=== PATIENT | female | born 1990 | race African-American/Black ===

== ENCOUNTER 2017-12-25 21:17 | Emergency (ER) | payer OTHER ==
--- NOTE | 2017-12-25 23:41 | EDPHYS ---
Physician Documentation [facility] Name: Stephenie Miller Age: 27 yrs Sex: Female : 1990 Arrival Date: 12/25/2017 Time: 21:18 Bed 30 Private MD: ED Physician Josh Carolina HPI: 12/26 01:05 This 27 yrs old Black Female presents to ER via Ambulatory with complaints of Fall snw Injury. 01:05 Details of fall: The patient fell from an upright position, while standing. Onset: The snw symptoms/episode began/occurred suddenly, today. Associated injuries: The patient sustained left leg and palmar aspect of left forearm, abrasion, contusion, hematoma. Severity of symptoms: At their worst the symptoms were moderate, in the emergency department the symptoms are unchanged. It is unknown whether or not the patient has had similar symptoms in the past. The patient has not recently seen a physician. 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 - Social history:: Smoking status: Patient/guardian denies using tobacco. ROS: 12/26 01:05 Constitutional: Negative for fever, chills, and weight loss, Eyes: Negative for injury, snw pain, redness, and discharge, ENT: Negative for injury, pain, and discharge, Neck: Negative for injury, pain, and swelling, Cardiovascular: Negative for chest pain, palpitations, and edema, Respiratory: Negative for shortness of breath, cough, wheezing, and pleuritic chest pain, Abdomen/GI: Negative for abdominal pain, nausea, vomiting, diarrhea, and constipation, Back: Negative for injury and pain, : Negative for injury, bleeding, discharge, and swelling, Skin: Negative for injury, rash, and discoloration, Neuro: Negative for headache, weakness, numbness, tingling, and seizure. MS/extremity: Positive for injury or acute deformity, erythema, swelling, of the left arm and palmar aspect of left forearm and left leg. Exam: 01:07 Constitutional: This is a well developed, well nourished patient who is awake, alert, snw and in no acute distress. Head/Face: Normocephalic, atraumatic. Eyes: Pupils equal round and reactive to light, extra-ocular motions intact. Lids and lashes normal. Conjunctiva and sclera are non-icteric and not injected. Cornea within normal limits. Periorbital areas with no swelling, redness, or edema. ENT: Nares patent. No nasal discharge, no septal abnormalities noted. Tympanic membranes are normal and external auditory canals are clear. Oropharynx with no redness, swelling, or masses, exudates, or evidence of obstruction, uvula midline. Mucous membranes moist. Neck: Trachea midline, no thyromegaly or masses palpated, and no cervical lymphadenopathy. Supple, full range of motion without nuchal rigidity, or vertebral point tenderness. No Meningismus. Chest/axilla: Normal chest wall appearance and motion. Nontender with no deformity. No lesions are appreciated. Cardiovascular: Regular rate and rhythm with a normal S1 and S2. No gallops, murmurs, or rubs. Normal PMI, no JVD. No pulse deficits. Respiratory: Lungs have equal breath sounds bilaterally, clear to auscultation and percussion. No rales, rhonchi or wheezes noted. No increased work of breathing, no retractions or nasal flaring. Abdomen/GI: Soft, non-tender, with normal bowel sounds. No distension or tympany. No guarding or rebound. No evidence of tenderness throughout. Back: No spinal tenderness. No costovertebral tenderness. Full range of motion. Neuro: Awake and alert, GCS 15, oriented to person, place, time, and situation. Cranial nerves II-XII grossly intact. Motor strength 5/5 in all extremities. Sensory grossly intact. Cerebellar exam normal. Normal gait. Psych: Awake, alert, with orientation to person, place and time. Behavior, mood, and affect are within normal limits. 01:07 Skin: Appearance: normal except for affected area, injury, abrasion(s), very small abrasion noted, of the lateral aspect of left knee, contusion(s), that are deep, of the lateral aspect of left thigh. Vital Signs: 12/25 22:00 BP 127 / 81; Pulse 60; Resp 18 S; Temp 98.0(O); Pulse Ox 98% on R/A; Weight 98.88 kg; ea Height 5 ft. 5 in. (165.10 cm); Pain 5/10; 22:00 Body Mass Index 36.28 (98.88 kg, 165.10 cm) ea MDM: 23:24 Patient medically screened. snw 12/26 01:06 Data reviewed: vital signs, nurses notes. Data interpreted: Pulse oximetry: on room air snw is 98 %. Interpretation: normal. Counseling: I had a detailed discussion with the patient and/or guardian regarding: the historical points, exam findings, and any diagnostic results supporting the discharge/admit diagnosis, the presence of at least one elevated blood pressure reading (>120/80) during this emergency department visit, the need for outpatient follow up, to return to the emergency department if symptoms worsen or persist or if there are any questions or concerns that arise at home. Special discussion: I have referred the patient to see his PCP for further evaluation of high blood pressure. Based on the history and exam findings, there is no indication for further emergent testing or inpatient evaluation. I discussed with the patient/guardian the need to see the primary care provider for further evaluation of the symptoms. Administered Medications: 12/25 23:48 Not Given (other intervention used): Tylenol #3 (300 mg-30 mg) 1 tablet PO once snw 23:49 Not Given (pt remembered the last was in 2012): Tetanus-Diphtheria Toxoid Adult 0.5 ml snw IM once 23:54 Drug: KeFLEX 500 mg Route: PO; [facility] 23:55 Follow up: Response: Medication administered at discharge. [facility] 23:54 Drug: Motrin 600 mg Route: PO; kb1 23:54 Follow up: Response: Medication administered at discharge. kb1 Disposition: 12/26 06:19 Co-signature as Attending Physician, Josh Carolina MD. Disposition: 12/25/17 23:40 Discharged to Home. Impression: Fall (on) (from) unspecified stairs and steps, Contusion of unspecified lower leg, Abrasion of knee, Hematoma to lateral thigh. - Condition is Stable. - Discharge Instructions: Abrasion, Hematoma, Fall Prevention and Home Safety, VIS, Tetanus, Diphtheria (Td) - CDC. - Prescriptions for Keflex 500 mg Oral Capsule - take 1 capsule by ORAL route every 8 hours for 10 days; 30 capsule. Diclofenac Sodium 75 mg Oral Tablet Sustained Release - take 1 tablet by ORAL route 2 times per day; 30 tablet. - Medication Reconciliation Form, Thank You Letter, Antibiotic Education, Prescription Opioid Use form. - Follow up: Private Physician; When: 2 - 3 days; Reason: Recheck today's complaints, Continuance of care, Re-evaluation by your physician. Follow up: Emergency Department; When: As needed; Reason: Worsening of condition. Signatures: Archana Hilario, BELLY ROLLER-C BELLY ROLLER-Csnw Guillermina Gibson, RN RN ea Josh Carolina MD MD gs Karina Bateman RN RN kb1
--- NOTE | 2017-12-25 23:41 | ER ---
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 States "my left calf hurts really bad and I scrapped my leg and arms up" Pt denies hitting head, denies LOC. Transition of care: patient was not received from another setting of care. Onset of symptoms was December 25, 2017. Care prior to arrival: None. 21:49 Method Of Arrival: Ambulatory ea 21:49 Acuity: RADHA 3 ea Triage Assessment: 21:56 General: Appears in no apparent distress. Behavior is calm, cooperative, appropriate ea for age. Pain: Complains of pain in left arm and left leg Pain does not radiate. Pain currently is 5 out of 10 on a pain scale. Quality of pain is described as aching. Derm: abrasions to left forearm and posterior left upper thigh. 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 - Social history:: Smoking status: Patient/guardian denies using tobacco. Screenin:02 Abuse screen: Denies threats or abuse. Nutritional screening: No deficits noted. ea Tuberculosis screening: No symptoms or risk factors identified. Fall Risk None identified. Assessment: 22:55 General: Appears in no apparent distress. Behavior is calm, cooperative. Neuro: Level kb1 of Consciousness is awake, alert, obeys commands, Oriented to person, place, time, situation. Cardiovascular: Patient's skin is warm and dry. Respiratory: Respiratory effort is even, unlabored, Respiratory pattern is regular, symmetrical. GI: No signs and/or symptoms were reported involving the gastrointestinal system. : No signs and/or symptoms were reported regarding the genitourinary system. Derm: superficial laceration to right side of left leg below knee. Bleeding controlled. Musculoskeletal: Reports "tightness" in left calf, pain in left wrist "I had surgery here and it is kind of hurting." surgery was in 2011. Injury Description: Abrasion. Vital Signs: 22:00 BP 127 / 81; Pulse 60; Resp 18 S; Temp 98.0(O); Pulse Ox 98% on R/A; Weight 98.88 kg; ea Height 5 ft. 5 in. (165.10 cm); Pain 5/10; 22:00 Body Mass Index 36.28 (98.88 kg, 165.10 cm) ea ED Course: 21:18 Patient arrived in ED. ds1 21:55 Triage completed. ea 22:54 Karina Bateman, RN is Primary Nurse. kb1 23:02 Patient has correct armband on for positive identification. Bed in low position. Call kb1 light in reach. 23:02 No provider procedures requiring assistance completed. Patient did not have IV access kb1 during this emergency room visit. 23:06 Archana Hilario F[facility]-C [facility]. snw 23:06 Josh Carolina MD is Attending Physician. snw Administered Medications: 23:48 Not Given (other intervention used): Tylenol #3 (300 mg-30 mg) 1 tablet PO once snw 23:49 Not Given (pt remembered the last was in 2012): Tetanus-Diphtheria Toxoid Adult 0.5 ml snw IM once 23:54 Drug: KeFLEX 500 mg Route: PO; kb1 23:55 Follow up: Response: Medication administered at discharge. kb1 23:54 Drug: Motrin 600 mg Route: PO; kb1 23:54 Follow up: Response: Medication administered at discharge. kb1 Outcome: 23:40 Discharge ordered by . snw 23:57 Discharged to home ambulatory. kb1 23:57 Condition: stable 23:57 Discharge instructions given to patient, Instructed on discharge instructions, follow up and referral plans. medication usage, Demonstrated understanding of instructions, follow-up care, medications, Prescriptions given X 2. 23:58 Patient left the ED. kb1 Signatures: Archana Hilario, PETROPHYSICIST-C PETROPHYSICIST-Csnw Ashley Bowman ds1 Guillermina Gibson RN Karina Zapata ea, RN RN kb1 Corrections: (The following items were deleted from the chart) 22:02 21:56 General: Appears in no apparent distress. 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 States "my left calf hurts really bad and I scrapped my leg and arms up" ea 23:05 22:55 Musculoskeletal: Reports "tightness" in left calf kb1 kb1
[2017-12-26] MEDS ORDERED: CODEINE 30MG/APAP 300MG TAB ONE (00:03)
[2017-12-26] MEDS ORDERED: CEPHALEXIN 250 MG CAP ONE (00:03)
[2017-12-26] MEDS ORDERED: TETANUS & DIPHTHERIA TOX,ADULT 0.5 ML VIAL ONE (00:04)
[2017-12-26] MEDS ORDERED: IBUPROFEN 200 MG TAB PO ONE (00:10)
[2017-12-26 00:17] VITALS: BP 127/81; TEMP 98; O2SAT 98
== END 2017-12-25 23:58 | disposition home or self-care (01) ==
LOC: ER 21:17
DX: Y92.69 Other specified industrial and construction area as the place of occurrence of the external cause; S80.12XA Contusion of left lower leg, initial encounter; Y99.0 Civilian activity done for income or pay; W17.89XA Other fall from one level to another, initial encounter; S80.212A Abrasion, left knee, initial encounter; S70.12XA Contusion of left thigh, initial encounter; Y93.89 Activity, other specified
CPT/HCPCS: 90714; 99283

== ENCOUNTER 2018-09-14 19:32 | Emergency (ER) | payer OTHER, SELFPAY ==
[2018-09-14 20:37] LABS: Absolute Lymphocytes (CBC) 2.4 K/uL (0.7-4.9); Absolute Monocytes 0.5 K/uL (0.1-1.3); Absolute Neutrophil 4.7 K/uL (1.8-8.0); Basophils % 0.7 % (0-1.3); Hematocrit 37.5 % (36.0-45.0); Lymphocytes % 30.6 % (15.3-44.8); MCH 29.7 pg (27.0-35.0); MCV 88.4 fL (80-100); MPV 8.1 fL (7.6-11.3); Monocytes % 6.4 % (3.3-12.3); RBC Red Blood Cell Count 4.24 M/uL (3.86-4.86)
[2018-09-14 20:49] LABS: Protime INR 1.04
[2018-09-14 21:19] LABS: ALT/SGPT 21 U/L (12-78); AST/SGOT 13 U/L (15-37); Albumin 3.4 g/dL (3.4-5.0); Alkaline Phosphatase 80 U/L (45-117); BUN Blood Urea Nitrogen 16 mg/dL (7-18); Bicarbonate 24 mmol/L (21-32); Bilirubin Direct < 0.1 mg/dL (0-0.2); Bilirubin Total 0.1 mg/dL (0.2-1.0); Glucose Level 94 mg/dL (74-106); Magnesium 2.3 mg/dL (1.8-2.4); NT PRO-BNP 8 pg/mL (<125); Potassium 3.5 mmol/L (3.5-5.1); Protein, Total 7.5 g/dL (6.4-8.2); Sodium Level 139 mmol/L (136-145); Troponin (Emerg Dept Use Only) < 0.02 ng/mL (0.0-0.045)
--- NOTE | 2018-09-14 21:34 | EDPHYS ---
Physician Documentation [facility] Name: Stephenie Miller Age: 27 yrs Sex: Female : 1990 Arrival Date: 09/14/2018 Time: 19:34 Bed 23 Private MD: ED Physician Josh Carolina HPI: 09/14 21:09 This 27 yrs old Black Female presents to ER via Ambulatory with complaints of Chest gs Pressure. 21:09 The patient or guardian reports chest pain that is located primarily in the anterior gs chest wall. The pain does not radiate. Associated signs and symptoms: Pertinent negatives: diaphoresis, shortness of breath. The chest pain is described as dull. Duration: The patient or guardian reports multiple episodes, that are intermittent, that wax and wane, with no pattern. Modifying factors: The symptoms are alleviated by nothing. the symptoms are aggravated by nothing. Severity of pain: At its worst the pain was moderate in the emergency department the pain has improved markedly. The patient has experienced similar episodes in the past, a few times. 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 - Social history:: Smoking status: Patient/guardian denies using tobacco. - Ebola Screening: : Patient denies travel to an Ebola-affected area in the 21 days before illness onset. ROS: 21:09 All other systems are negative. gs Exam: 21:09 Head/Face: Normocephalic, atraumatic. Eyes: Pupils equal round and reactive to light, gs extra-ocular motions intact. Lids and lashes normal. Conjunctiva and sclera are non-icteric and not injected. Cornea within normal limits. Periorbital areas with no swelling, redness, or edema. ENT: Nares patent. No nasal discharge, no septal abnormalities noted. Tympanic membranes are normal and external auditory canals are clear. Oropharynx with no redness, swelling, or masses, exudates, or evidence of obstruction, uvula midline. Mucous membranes moist. Neck: Trachea midline, no thyromegaly or masses palpated, and no cervical lymphadenopathy. Supple, full range of motion without nuchal rigidity, or vertebral point tenderness. No Meningismus. Chest/axilla: Normal chest wall appearance and motion. Nontender with no deformity. No lesions are appreciated. Cardiovascular: Regular rate and rhythm with a normal S1 and S2. No gallops, murmurs, or rubs. Normal PMI, no JVD. No pulse deficits. Respiratory: Lungs have equal breath sounds bilaterally, clear to auscultation and percussion. No rales, rhonchi or wheezes noted. No increased work of breathing, no retractions or nasal flaring. Abdomen/GI: Soft, non-tender, with normal bowel sounds. No distension or tympany. No guarding or rebound. No evidence of tenderness throughout. Back: No spinal tenderness. No costovertebral tenderness. Full range of motion. Skin: Warm, dry with normal turgor. Normal color with no rashes, no lesions, and no evidence of cellulitis. MS/ Extremity: Pulses equal, no cyanosis. Neurovascular intact. Full, normal range of motion. Neuro: Awake and alert, GCS 15, oriented to person, place, time, and situation. Cranial nerves II-XII grossly intact. Motor strength 5/5 in all extremities. Sensory grossly intact. Cerebellar exam normal. Normal gait. 21:09 Constitutional: The patient appears alert, awake. 21:09 ECG was reviewed by the Attending Physician. Vital Signs: 19:51 Pulse 88; Resp 18; Temp 98.2; Pulse Ox 100% on R/A; Weight 90.72 kg; Height 5 ft. 5 in. aj1 (165.10 cm) (R); 20:00 BP 142 / 97; rv 20:30 BP 124 / 82; Pulse 82; Resp 16 S; Pulse Ox 100% on R/A; rv 21:44 BP 143 / 77; Pulse 90 LA; Resp 16 S; Pulse Ox 100% on R/A; rv 19:51 Body Mass Index 33.28 (90.72 kg, 165.10 cm) aj1 MDM: 19:52 Patient medically screened. 21:09 Differential diagnosis: abnormal EKG, acute myocardial infarction, chest wall pain, gs pneumonia, pneumothorax. HEART Score: History: Slightly Suspicious (0), ECG: Normal (0), Age: < or = 45 years (0), Risk Factors: 1 or 2 risk factors (1), Troponin: < or = 1 x Normal Limit (0). Data reviewed: vital signs, nurses notes. Counseling: I had a detailed discussion with the patient and/or guardian regarding: the historical points, exam findings, and any diagnostic results supporting the discharge/admit diagnosis, lab results, radiology results, the need for outpatient follow up. 09/14 19:52 Order name: Basic Metabolic Panel; Complete Time: 21:21 gs 09/14 19:52 Order name: CBC with Diff; Complete Time: 20:56 gs 09/14 19:53 Order name: LFT's; Complete Time: 21:21 gs 09/14 19:53 Order name: Magnesium; Complete Time: 21:22 09/14 19:53 Order name: NT PRO-BNP; Complete Time: 21:22 gs 09/14 19:53 Order name: PT-INR; Complete Time: 20:56 09/14 19:53 Order name: Troponin (emerg Dept Use Only); Complete Time: 21:22 09/14 19:53 Order name: XRAY Chest (1 view) 09/14 19:53 Order name: EKG; Complete Time: 19:54 gs 09/14 19:53 Order name: Cardiac monitoring; Complete Time: 20:49 09/14 19:53 Order name: EKG - Nurse/Tech; Complete Time: 20:49 09/14 19:53 Order name: IV Saline Lock; Complete Time: 20:49 09/14 21:32 Order name: Urine Dipstick--Ancillary (enter results) oh 09/14 21:32 Order name: Urine --Ancillary (enter results) oh 09/14 19:53 Order name: Labs collected and sent; Complete Time: 20:49 gs 09/14 19:53 Order name: O2 Per Protocol; Complete Time: 20:49 09/14 19:53 Order name: O2 Sat Monitoring; Complete Time: 20:49 gs EC:09 Rate is 87 beats/min. Rhythm is regular. SD interval is normal. QRS interval is normal. gs No Q waves. T waves are Normal. No ST changes noted. Clinical impression: Normal ECG. Interpreted by me. Administered Medications: No medications were administered Disposition: 09/14/18 21:33 Discharged to Home. Impression: Chest pain, unspecified, Essential (primary) hypertension. - Condition is Stable. - Discharge Instructions: Nonspecific Chest Pain, Managing Your Hypertension. - Prescriptions for Norvasc 5 mg Oral Tablet - take 1 tablet by ORAL route once daily; 20 tablet. - Medication Reconciliation Form, Thank You Letter, Antibiotic Education, Prescription Opioid Use form. - Follow up: Private Physician; When: 2 - 3 days; Reason: Re-evaluation by your physician. Signatures: Dispatcher [employer] EDDarling Taylor RN RN aj1 Josh Carolina MD MD gs Bunny Medina RN RN rv Corrections: (The following items were deleted from the chart) 21:46 21:33 09/14/2018 21:33 Discharged to Home. Impression: Chest pain, unspecified; rv Essential (primary) hypertension. Condition is Stable. Discharge Instructions: Nonspecific Chest Pain, Managing Your Hypertension. Prescriptions for Norvasc 5 mg Oral Tablet - take 1 tablet by ORAL route once daily; 20 tablet. and Forms are Medication Reconciliation Form, Thank You Letter, Antibiotic Education, Prescription Opioid Use. Follow up: Private Physician; When: 2 - 3 days; Reason: Re-evaluation by your physician.
--- NOTE | 2018-09-14 21:34 | ER ---
Nurse's Notes [facility] Name: Stephenie Miller Age: 27 yrs Sex: Female : 1990 Arrival Date: 09/14/2018 Time: 19:34 Bed 23 Private MD: Diagnosis: Chest pain, unspecified;Essential (primary) hypertension Presentation: 09/14 19:49 Presenting complaint: Patient states: Left sided chest pressure and tightness that aj1 radiates to the neck since 1700 today. Patient denies nausea, SOB, palpitations, or dizziness. States that she used to take amlodipine for blood pressure but she has not had any for the past month. Transition of care: patient was not received from another setting of care. Onset of symptoms was September 14, 2018 at 17:00. Risk Assessment: Do you want to hurt yourself or someone else? Patient reports no desire to harm self or others. Initial Sepsis Screen: Does the patient meet any 2 criteria? No. Patient's initial sepsis screen is negative. Does the patient have a suspected source of infection? No. Patient's initial sepsis screen is negative. Care prior to arrival: None. 19:49 Method Of Arrival: Ambulatory aj1 19:49 Acuity: RADHA 3 aj1 Triage Assessment: 19:51 General: Appears in no apparent distress. uncomfortable, Behavior is calm, cooperative, aj1 appropriate for age. Pain: Complains of pain in anterior aspect of left upper chest Pain radiates to neck Pain currently is 2 out of 10 on a pain scale. Quality of pain is described as pressure, Pain began 3 hours ago. Neuro: Level of Consciousness is awake, alert, obeys commands. Cardiovascular: Reports chest pain, Patient's skin is warm and dry. Respiratory: Airway is patent Respiratory effort is even, unlabored, Respiratory pattern is regular, symmetrical. 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 - Social history:: Smoking status: Patient/guardian denies using tobacco. - Ebola Screening: : Patient denies travel to an Ebola-affected area in the 21 days before illness onset. Screenin:00 Abuse screen: Denies threats or abuse. Denies injuries from another. Nutritional rv screening: No deficits noted. Tuberculosis screening: No symptoms or risk factors identified. Fall Risk None identified. Assessment: 19:59 General: Appears in no apparent distress. comfortable, Behavior is calm, cooperative. rv Pain: Complains of pain in chest Pain radiates to neck. Pain: Pain began 2-3 days ago. Neuro: Level of Consciousness is awake, alert, obeys commands, Oriented to person, place, time, situation. Cardiovascular: Capillary refill < 3 seconds Rhythm is regular. Respiratory: Airway is patent. GI: No signs and/or symptoms were reported involving the gastrointestinal system. : No signs and/or symptoms were reported regarding the genitourinary system. EENT: No signs and/or symptoms were reported regarding the EENT system. Derm: Skin is intact. Musculoskeletal: No signs and/or symptoms reported regarding the musculoskeletal system. 20:53 Reassessment: Patient appears in no apparent distress at this time. rv Vital Signs: 19:51 Pulse 88; Resp 18; Temp 98.2; Pulse Ox 100% on R/A; Weight 90.72 kg; Height 5 ft. 5 in. aj1 (165.10 cm) (R); 20:00 BP 142 / 97; rv 20:30 BP 124 / 82; Pulse 82; Resp 16 S; Pulse Ox 100% on R/A; rv 21:44 BP 143 / 77; Pulse 90 LA; Resp 16 S; Pulse Ox 100% on R/A; rv 19:51 Body Mass Index 33.28 (90.72 kg, 165.10 cm) aj1 ED Course: 19:34 Patient arrived in ED. ag3 19:38 Josh Carolina MD is Attending Physician. gs 19:50 Triage completed. aj1 19:51 Arm band placed on Patient placed in an exam room. aj1 20:00 Patient has correct armband on for positive identification. Placed in gown. Bed in low rv position. Call light in reach. Side rails up X 1. Adult w/ patient. athletic monitor on. Pulse ox on. NIBP on. 20:01 Patient maintains SpO2 saturation greater than 95% on room air. rv 20:30 Inserted saline lock: 20 gauge in right forearm, using aseptic technique. Blood rv collected. 20:30 Initial lab(s) drawn, by ED staff, sent to lab. rv 20:49 Troponin (emerg Dept Use Only) Sent. rv 20:50 PT-INR Sent. rv 20:50 NT PRO-BNP Sent. rv 20:50 Magnesium Sent. rv 20:50 LFT's Sent. rv 20:50 Basic Metabolic Panel Sent. rv 21:45 No provider procedures requiring assistance completed. IV discontinued, bleeding rv controlled, No redness/swelling at site. Pressure dressing applied. 21:46 XRAY Chest (1 view) In Process Unspecified. EDMS Administered Medications: No medications were administered Outcome: 21:33 Discharge ordered by MD. 21:45 Discharged to home ambulatory. rv 21:45 Condition: good 21:45 Discharge instructions given to patient, Instructed on discharge instructions, follow up and referral plans. medication usage, Demonstrated understanding of instructions, follow-up care, medications, Prescriptions given X 1. 21:46 Patient left the ED. rv Signatures: Dispatcher [employer] EDMS Darling Anderson RN RN aj1 Josh Carolina MD MD Bunny Medina RN RN Angeli Parker ag3
[2018-09-14 21:55] VITALS: TEMP 98.2; O2SAT 100
[2018-09-14 21:59] VITALS: BP 143/77
[2018-09-14 22:10] LABS: Urine Blood NEGATIVE (NEG); Urine Glucose NEGATIVE (NEG); Urine Protein NEGATIVE (NEG); Urine Specific Gravity 1.015 (1.005-1.030)
--- NOTE | 2018-09-15 05:46 | EKG ---
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
--- NOTE | 2018-09-15 07:16 | RAD REPORT ---
EXAM DESCRIPTION: RAD - Chest Single View - 09/14/2018 9:45 pm CLINICAL HISTORY: Left-sided chest pain COMPARISON: None. TECHNIQUE: AP portable chest image was obtained 2127 hours . FINDINGS: Lung volumes are very low accentuating heart, vasculature and lung markings. No focal infi ltrate, mass or failure finding suspected. Heart and vasculature are normal. No measurable pleural ef fusion and no pneumothorax. No acute bony abnormality seen. No acute aortic findings suspected. IMPRESSION: Limited shallow inspiration film with no acute cardiopulmonary finding.
== END 2018-09-14 21:46 | disposition home or self-care (01) ==
LOC: ER 19:32
DX: I10 Essential (primary) hypertension (principal)
CPT/HCPCS: 36415; 71045; 80048; 80076; 81003; 81025; 83735; 83880; 84484; 85025; 85610; 93005; 99285

== ENCOUNTER 2019-02-03 17:38 | Emergency (ER) | payer SELFPAY ==
--- NOTE | 2019-02-03 19:06 | ER ---
Nurse's Notes [facility] Name: Stephenie Bal Age: 28 yrs Sex: Female : 1990 Arrival Date: 02/03/2019 Time: 17:41 Bed 19 Private MD: Alberta Goodwin K Diagnosis: Cellulitis of right axilla-right arm Presentation: 02/03 17:51 Presenting complaint: Patient states: i have had an abscess for about a year ago that i tw2 had worked on and i feel like it hasnt healed right or like the string is still in there, RIGHT axilla. Transition of care: patient was not received from another setting of care. Onset of symptoms was February 03, 2019. Risk Assessment: Do you want to hurt yourself or someone else? Patient reports no desire to harm self or others. Initial Sepsis Screen: Does the patient meet any 2 criteria? No. Patient's initial sepsis screen is negative. Does the patient have a suspected source of infection? No. Patient's initial sepsis screen is negative. Care prior to arrival: None. 17:51 Method Of Arrival: Ambulatory tw2 17:51 Acuity: RADHA 3 tw2 Triage Assessment: 17:53 General: Appears in no apparent distress. Behavior is calm, cooperative, appropriate tw2 for age. Pain: Complains of pain in right axilla. EENT: No signs and/or symptoms were reported regarding the EENT system. Neuro: Level of Consciousness is awake, alert, obeys commands, Oriented to person, place, time, situation. Cardiovascular: Heart tones S1 S2 Patient's skin is warm and dry. Respiratory: Airway is patent Respiratory effort is even, unlabored, Respiratory pattern is regular, symmetrical, Breath sounds are clear bilaterally. GI: No signs and/or symptoms were reported involving the gastrointestinal system. : No signs and/or symptoms were reported regarding the genitourinary system. Derm: Abscess located on right axilla. 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 - Social history:: Smoking status: . - Ebola Screening: : Patient negative for fever greater than or equal to 101.5 degrees Fahrenheit, and additional compatible Ebola Virus Disease symptoms. Screenin:55 Abuse screen: Denies threats or abuse. Nutritional screening: No deficits noted. tw2 Tuberculosis screening: No symptoms or risk factors identified. Fall Risk None identified. Assessment: 17:54 Reassessment: see triage assessment. tw2 18:07 Derm: Abscess located on right axilla is dime sized, has clear drainage, is red, is tw2 raised. 19:09 Reassessment: Patient appears in no apparent distress at this time. Patient is alert, tw2 oriented x 3, equal unlabored respirations, skin warm/dry/pink. Vital Signs: 17:52 BP 132 / 86; Pulse 60; Resp 17; Temp 98.6(O); Pulse Ox 100% on R/A; Weight 99.79 kg tw2 (R); Height 5 ft. 5 in. (165.10 cm) (R); Pain 4/10; 17:52 Body Mass Index 36.61 (99.79 kg, 165.10 cm) tw2 ED Course: 17:41 Patient arrived in ED. mr 17:41 Alberta Goodwin MD is Private Physician. mr 17:51 Arlette Evans, THAD is Primary Nurse. tw2 17:52 Triage completed. tw2 17:54 Arm band placed on. tw2 17:55 Placed in gown. Bed in low position. Call light in reach. tw2 18:26 Fahad Morel PA is PHCP. cp 18:26 Marcie Perla MD is Attending Physician. cp 19:04 Momo Sawyer MD is Referral Physician. cp 19:10 No provider procedures requiring assistance completed. Patient did not have IV access tw2 during this emergency room visit. Administered Medications: No medications were administered Outcome: 19:04 Discharge ordered by . cp 19:10 Discharged to home ambulatory. tw2 19:10 Condition: stable 19:10 Discharge instructions given to patient, Instructed on discharge instructions, follow up and referral plans. medication usage, wound care, Demonstrated understanding of instructions, follow-up care, medications, wound care. 19:11 Patient left the ED. tw2 Signatures: Ana Montana mr Fahad Morel PA PA cp Wise, Tara, RN RN tw2
--- NOTE | 2019-02-03 19:06 | EDPHYS ---
Physician Documentation [facility] Name: Stephenie Bal Age: 28 yrs Sex: Female : 1990 Arrival Date: 02/03/2019 Time: 17:41 Bed 19 Private MD: Alberta Goodwin K ED Physician Marcie Perla HPI: 02/03 18:59 This 28 yrs old Black Female presents to ER via Ambulatory with complaints of Abscess. cp 18:59 drainage from right arm axilla. Onset: The symptoms/episode began/occurred several days cp ago. Possible cause(s): unknown. Associated signs and symptoms: Pertinent positives: drainage, Pertinent negatives: fever. Severity of symptoms: in the emergency department the symptoms are unchanged. Patient reports having area incised and drained about a year ago and is concerned about possible retained "gauze". 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 - Social history:: Smoking status: . - Ebola Screening: : Patient negative for fever greater than or equal to 101.5 degrees Fahrenheit, and additional compatible Ebola Virus Disease symptoms. ROS: 19:01 Constitutional: Negative for body aches, chills, fever, poor PO intake. cp 19:01 Cardiovascular: Negative for chest pain. 19:01 Respiratory: Negative for cough, shortness of breath, wheezing. 19:01 Abdomen/GI: Negative for abdominal pain, nausea, vomiting, and diarrhea. 19:01 Skin: Positive for of the right arm axilla, drainage. 19:01 All other systems are negative. Exam: 19:02 Head/Face: Normocephalic, atraumatic. cp 19:02 Constitutional: The patient appears in no acute distress, alert, awake, non-toxic, well developed, well nourished. 19:02 Eyes: Periorbital structures: appear normal, Conjunctiva: normal, no exudate, no injection, Lids and lashes: appear normal, bilaterally. 19:02 ENT: External ear(s): are unremarkable, Nose: is normal, Mouth: is normal. 19:02 Chest/axilla: Axilla: abscess, is not appreciated, cellulitis, that is mild, of the right axilla. 19:02 Cardiovascular: Rate: normal. 19:02 Respiratory: the patient does not display signs of respiratory distress, Respirations: normal, no use of accessory muscles, no retractions, no splinting, no tachypnea. Vital Signs: 17:52 BP 132 / 86; Pulse 60; Resp 17; Temp 98.6(O); Pulse Ox 100% on R/A; Weight 99.79 kg tw2 (R); Height 5 ft. 5 in. (165.10 cm) (R); Pain 4/10; 17:52 Body Mass Index 36.61 (99.79 kg, 165.10 cm) tw2 MDM: 18:32 Patient medically screened. cp 19:03 Data reviewed: vital signs, nurses notes, and as a result, I will discharge patient. cp Administered Medications: No medications were administered Disposition: 19:15 Chart complete. cp Disposition: 02/03/19 19:04 Discharged to Home. Impression: Cellulitis of right axilla - right arm. - Condition is Stable. - Discharge Instructions: Cellulitis, Adult, Hidradenitis Suppurativa. - Prescriptions for Clindamycin HCl 300 mg Oral Capsule - take 1 capsule by ORAL route every 8 hours for 10 days; 30 capsule. - Medication Reconciliation Form, Thank You Letter, Antibiotic Education, Prescription Opioid Use form. - Follow up: Momo Sawyer MD; When: 2 - 3 days; Reason: Worsening of condition. - Problem is new. - Symptoms have improved. Signatures: Fahad Morel PA PA cp Arlette Evans RN RN tw2 Corrections: (The following items were deleted from the chart) 19:11 19:04 02/03/2019 19:04 Discharged to Home. Impression: Cellulitis of right axilla - tw2 right arm. Condition is Stable. Forms are Medication Reconciliation Form, Thank You Letter, Antibiotic Education, Prescription Opioid Use. Follow up: Momo Sawyer; When: 2 - 3 days; Reason: Worsening of condition. Problem is new. Symptoms have improved. cp
[2019-02-03 19:25] VITALS: BP 132/86; TEMP 98.6; O2SAT 100
== END 2019-02-03 19:11 | disposition home or self-care (01) ==
LOC: ER 17:38
DX: L03.111 Cellulitis of right axilla (principal); I10 Essential (primary) hypertension
CPT/HCPCS: 99281

== ENCOUNTER 2019-05-18 18:32 | Emergency (ER) | payer SELFPAY ==
[2019-05-18] MEDS ORDERED: TOBRAMYCIN SULF 0.3% OPTH OINT ONE (19:28)
[2019-05-18] MEDS ORDERED: TETRACAINE HCL 0.5% 4ML OPTH ONE (19:28)
[2019-05-18] MEDS ORDERED: FLUORESCEIN SODIUM 1 MG/WRAP ONE (19:28)
--- NOTE | 2019-05-18 19:35 | EDPHYS ---
Physician Documentation [facility] Name: Stephenie Bal Age: 28 yrs Sex: Female : 1990 Arrival Date: 05/18/2019 Time: 18:34 Bed 14 Private MD: ED Physician Fahad Olsen HPI: 05/18 19:27 This 28 yrs old Black Female presents to ER via Ambulatory with complaints of Eye Pain. ross 19:27 The patient is experiencing pain, tearing, The patient sustained a scratch. Onset: The ross symptoms/episode began/occurred 7 day(s) ago. Duration: the symptoms are continuous. Aggravated by blinking, opening eye, Alleviated by nothing. Associated signs and symptoms: Pertinent positives: None. Patient wears soft contacts. Severity of symptoms: At their worst the symptoms were mild in the emergency department the symptoms are unchanged. The patient has not experienced similar symptoms in the past. 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 - Social history:: Smoking status: Patient/guardian denies using tobacco. - Ebola Screening: : No symptoms or risks identified at this time. - Family history:: not pertinent. ROS: 19:27 Constitutional: Negative for fever, chills, and weight loss, ENT: Negative for injury, ross pain, and discharge, Neck: Negative for injury, pain, and swelling, Cardiovascular: Negative for chest pain, palpitations, and edema, Respiratory: Negative for shortness of breath, cough, wheezing, and pleuritic chest pain, Abdomen/GI: Negative for abdominal pain, nausea, vomiting, diarrhea, and constipation, Back: Negative for injury and pain, : Negative for injury, bleeding, discharge, and swelling, MS/Extremity: Negative for injury and deformity, Skin: Negative for injury, rash, and discoloration, Neuro: Negative for headache, weakness, numbness, tingling, and seizure, Psych: Negative for depression, anxiety, suicide ideation, homicidal ideation, and hallucinations, Allergy/Immunology: Negative for hives, rash, and allergies, Endocrine: Negative for neck swelling, polydipsia, polyuria, polyphagia, and marked weight changes, Hematologic/Lymphatic: Negative for swollen nodes, abnormal bleeding, and unusual bruising. 19:27 Eyes: Positive for itching, matting, pain, of the outer aspect of conjuctiva of right eye and inner aspect of conjuctiva of right eye. Exam: 19:27 Constitutional: This is a well developed, well nourished patient who is awake, alert, ross and in no acute distress. Head/Face: Normocephalic, atraumatic. ENT: Nares patent. No nasal discharge, no septal abnormalities noted. Tympanic membranes are normal and external auditory canals are clear. Oropharynx with no redness, swelling, or masses, exudates, or evidence of obstruction, uvula midline. Mucous membranes moist. Neck: Trachea midline, no thyromegaly or masses palpated, and no cervical lymphadenopathy. Supple, full range of motion without nuchal rigidity, or vertebral point tenderness. No Meningismus. Chest/axilla: Normal chest wall appearance and motion. Nontender with no deformity. No lesions are appreciated. Cardiovascular: Regular rate and rhythm with a normal S1 and S2. No gallops, murmurs, or rubs. Normal PMI, no JVD. No pulse deficits. Respiratory: Lungs have equal breath sounds bilaterally, clear to auscultation and percussion. No rales, rhonchi or wheezes noted. No increased work of breathing, no retractions or nasal flaring. Abdomen/GI: Soft, non-tender, with normal bowel sounds. No distension or tympany. No guarding or rebound. No evidence of tenderness throughout. Back: No spinal tenderness. No costovertebral tenderness. Full range of motion. Skin: Warm, dry with normal turgor. Normal color with no rashes, no lesions, and no evidence of cellulitis. MS/ Extremity: Pulses equal, no cyanosis. Neurovascular intact. Full, normal range of motion. Neuro: Awake and alert, GCS 15, oriented to person, place, time, and situation. Cranial nerves II-XII grossly intact. Motor strength 5/5 in all extremities. Sensory grossly intact. Cerebellar exam normal. Normal gait. Psych: Awake, alert, with orientation to person, place and time. Behavior, mood, and affect are within normal limits. 19:27 Eyes: Periorbital structures: appear normal, no acute changes, Pupils: no acute changes, equal, round, and reactive to light and accomodation, Extraocular movements: no acute changes, Conjunctiva: normal, no acute changes, Corneas: are normal, no acute changes, Sclera: no appreciated abnormality, no acute changes, Anterior chamber: normal, no acute changes, Lids and lashes: appear normal, no acute changes, funduscopic exam reveals no obvious abnormalities, no acute changes, discs that are sharp, no appreciated papilledema, no retinal detachment, no enlargement of the optic cup, no appreciated A-V knicking, no evidence of cotton wool exudatates, no flame hemorrhages, no macular cross red spot, no afferent papillary defect, Visual sanchez: are intact, no acute changes, Nystagmus: is not appreciated, no acute changes. Vital Signs: 18:48 BP 131 / 83; Pulse 89; Resp 16; Temp 97.8; Pulse Ox 98% on R/A; Weight 90.72 kg; Height la1 5 ft. 5 in. (165.10 cm); 19:34 BP 131 / 84; Pulse 92; Resp 18; Pulse Ox 100% ; ea 18:48 Body Mass Index 33.28 (90.72 kg, 165.10 cm) la1 Visual Acuity: 19:14 Left Eye Visual acuity 20/100, ; Right Eye Visual acuity 20/100, ; Both Eyes Visual ea acuity 20/100; Without Lenses; Pt notes she normally uses contacts MDM: 19:18 Patient medically screened. [facility] 19:36 Data reviewed: vital signs, nurses notes. [facility] 05/18 19:26 Order name: Eye Tray; Complete Time: 19:32 [facility] Administered Medications: 19:57 Drug: Tobramycin Ointment (0.3 %) 1 application Route: Ophthalmic; Site: right eye; ea Disposition: 05/18/19 19:35 Discharged to Home. Impression: Conjunctivitis. - Condition is Stable. - Discharge Instructions: Bacterial Conjunctivitis. - Prescriptions for Tobrex 0.3 % Ophthalmic ointment - apply 1 inch ribbon by OPHTHALMIC route 3 times per day; 3.5 gram. - Medication Reconciliation Form, Thank You Letter, Antibiotic Education, Prescription Opioid Use form. - Follow up: Private Physician; When: 2 - 3 days; Reason: Recheck today's complaints, Continuance of care, Re-evaluation by your physician. Follow up: Estrada Barger MD; When: 1 - 2 days; Reason: Recheck today's complaints, Re-evaluation by your physician. - Problem is new. - Symptoms have improved. Signatures: Fahad Olsen MD MD cha Attema, Lee RN RN la1 Guillermina Gibson RN RN ea Corrections: (The following items were deleted from the chart) 19:36 19:35 05/18/2019 19:35 Discharged to Home. Impression: Conjunctivitis. Condition is ross Stable. Forms are Medication Reconciliation Form, Thank You Letter, Antibiotic Education, Prescription Opioid Use. Follow up: Private Physician; When: 2 - 3 days; Reason: Recheck today's complaints, Continuance of care, Re-evaluation by your physician. Problem is new. Symptoms have improved. ross 20:07 19:36 05/18/2019 19:35 Discharged to Home. Impression: Conjunctivitis. Condition is ea Stable. Discharge Instructions: Bacterial Conjunctivitis. Prescriptions for Tobrex 0.3 % Ophthalmic ointment - apply 1 inch ribbon by OPHTHALMIC route 3 times per day; 3.5 gram. and Forms are Medication Reconciliation Form, Thank You Letter, Antibiotic Education, Prescription Opioid Use. Follow up: Private Physician; When: 2 - 3 days; Reason: Recheck today's complaints, Continuance of care, Re-evaluation by your physician. Follow up: Estrada Barger; When: 1 - 2 days; Reason: Recheck today's complaints, Re-evaluation by your physician. Problem is new. Symptoms have improved. ross
--- NOTE | 2019-05-18 19:35 | ER ---
Nurse's Notes [facility] Name: Stephenie Bal Age: 28 yrs Sex: Female : 1990 Arrival Date: 05/18/2019 Time: 18:34 Bed 14 Private MD: Diagnosis: Conjunctivitis Presentation: 05/18 18:47 Presenting complaint: Patient states: Right eye pain for a few weeks. No visual changes la1 reported. Transition of care: patient was not received from another setting of care. Mechanism of Injury: No Mechanism of Injury. The patient denies any loss of vision. Onset of symptoms was May 18, 2019. Risk Assessment: Do you want to hurt yourself or someone else? Patient reports no desire to harm self or others. Initial Sepsis Screen: Does the patient meet any 2 criteria? No. Patient's initial sepsis screen is negative. Does the patient have a suspected source of infection? No. Patient's initial sepsis screen is negative. Care prior to arrival: None. 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 - Social history:: Smoking status: Patient/guardian denies using tobacco. - Ebola Screening: : No symptoms or risks identified at this time. - Family history:: not pertinent. Screenin:03 Abuse screen: Denies threats or abuse. Nutritional screening: No deficits noted. ea Tuberculosis screening: No symptoms or risk factors identified. Fall Risk None identified. Assessment: 19:01 General: Appears in no apparent distress. Behavior is appropriate for age. Pain: ea Complains of pain in right eye. Neuro: Level of Consciousness is awake, alert, obeys commands, Oriented to person, place, time, situation. Cardiovascular: Patient's skin is warm and dry. Respiratory: Airway is patent Respiratory effort is even, unlabored, Respiratory pattern is regular, symmetrical. EENT: Eyes are tearing on outer aspect of conjuctiva of right eye, inner aspect of conjuctiva of right eye and inner aspect of conjunctiva of left eye Sclera/Cornea are reddened in outer aspect of conjuctiva of right eye and inner aspect of conjuctiva of right eye. 20:04 Reassessment: Patient and/or family updated on plan of care and expected duration. Pain ea level reassessed. Patient is alert, oriented x 3, equal unlabored respirations, skin warm/dry/pink. Discharge instructions given to patient, verbalized the understanding of instruction. Pt left ED ambulatory with significant other, pt tolerating well. Vital Signs: 18:48 BP 131 / 83; Pulse 89; Resp 16; Temp 97.8; Pulse Ox 98% on R/A; Weight 90.72 kg; Height la1 5 ft. 5 in. (165.10 cm); 19:34 BP 131 / 84; Pulse 92; Resp 18; Pulse Ox 100% ; ea 18:48 Body Mass Index 33.28 (90.72 kg, 165.10 cm) la1 Visual Acuity: 19:14 Left Eye Visual acuity 20/100, ; Right Eye Visual acuity 20/100, ; Both Eyes Visual ea acuity 20/100; Without Lenses; Pt notes she normally uses contacts ED Course: 18:34 Patient arrived in ED. as 18:47 Triage completed. la1 18:48 Arm band placed on right wrist. la1 19:01 Guillermina Gibson, RN is Primary Nurse. ea 19:02 Patient has correct armband on for positive identification. Bed in low position. Call ea light in reach. Side rails up X2. 19:18 Fahad Olsen MD is Attending Physician. [facility] 19:36 Estrada Barger MD is Referral Physician. [facility] 19:39 Assist provider with eye exam of right eye. using fluorescein stain, Performed by Fahad Olsen MD Patient tolerated well. 20:07 Patient did not have IV access during this emergency room visit. ea Administered Medications: 19:57 Drug: Tobramycin Ointment (0.3 %) 1 application Route: Ophthalmic; Site: right eye; ea Outcome: 19:35 Discharge ordered by . [facility] 20:07 Discharged to home ambulatory, with significant other. ea 20:07 Condition: stable 20:07 Discharge instructions given to patient, Instructed on discharge instructions, follow up and referral plans. medication usage, Demonstrated understanding of instructions, follow-up care, medications, Prescriptions given X 1. 20:07 Patient left the ED. ea Signatures: Fahad Olsen MD MD cha Martinez, Amelia as Attema, Lee RN RN Guillermina Brooke RN RN shayy
[2019-05-18 21:32] VITALS: BP 131/84; O2SAT 100
[2019-05-18 21:33] VITALS: TEMP 97.8
== END 2019-05-18 20:07 | disposition home or self-care (01) ==
LOC: ER 18:32
DX: H10.9 Unspecified conjunctivitis (principal); I10 Essential (primary) hypertension
CPT/HCPCS: 99283

== ENCOUNTER 2022-02-05 18:31 | Emergency (ER) | payer SELFPAY ==
--- OUTSIDE RECORDS SUMMARY | 2022-02-05 18:33 | XMS REPORT | Continuity of Care Document ---
:1990 Author Organization [facility] t Address [facility] [place] [place] [id number] Care Team Providers Name Role Phone Unavailable Unavailable Unavailable Problems This patient has no known problems. Allergies, Adverse Reactions, Alerts This patient has no known allergies or adverse reactions. Medications This patient has no known medications. Procedures This patient has no known procedures. Results This patient has no known results.
--- NOTE | 2022-02-05 20:54 | RAD REPORT ---
EXAM DESCRIPTION: CT - Head Brain Wo Cont - 02/05/2022 8:44 pm CLINICAL HISTORY: facial paresthesias COMPARISON: No comparisons TECHNIQUE: Axial 5 mm thick images of the head were obtained without IV contrast. All CT scans are performed using dose optimization technique as appropriate and may include automated exposure control or mA/KV adjustment according to patient size. FINDINGS: No intracranial hemorrhage, mass, edema or shift of mid-line structures. No acute infarcti on changes seen. No abnormal extra-axial fluid collections. Ventricles are normal. Mastoid air cells and visualized portions of the paranasal sinuses are clear. No acute bony findings. IMPRESSION: Negative non-contrast CT head examination.
--- NOTE | 2022-02-05 21:02 | EDPHYS ---
Physician Documentation [facility] Name: Stephenie Bal Age: 31 yrs Sex: Female : 1990 Arrival Date: 02/05/2022 Time: 18:36 Bed Waiting Private MD: BILL Physician Fahad Olsen HPI: 02/05 20:24 This 31 yrs old Black Female presents to ER via Ambulatory with complaints of FACE [facility] TINGLING. 20:24 This is a 31-year-old female with history of hypertension the presents emerged [facility] department with complaints of numbness and tingling to both sides of the face beginning approximately 4 days ago. Denies unilateral weakness, difficulty walking, difficulty with speech.. Historical: - Allergies: 18:46 No Known Drug Allergies; ll1 - PMHx: 18:46 Hypertension; ll1 - PSHx: 18:46 L wrist SX; ll1 - Immunization history:: Client reports receiving the 2nd dose of the Covid vaccine, Flu vaccine status is unknown. - Social history:: Smoking status: Patient denies any tobacco usage or history of. ROS: 20:24 Constitutional: Negative for fever, chills, and weight loss, Cardiovascular: Negative jmm for chest pain, palpitations, and edema, Respiratory: Negative for shortness of breath, cough, wheezing, and pleuritic chest pain. 20:24 Neuro: Positive for numbness. 20:24 All other systems are negative. Exam: 20:24 Constitutional: This is a well developed, well nourished patient who is awake, alert, jmm and in no acute distress. Head/Face: atraumatic. Eyes: EOMI, no conjunctival erythema appreciated ENT: Moist Mucus Membranes Neck: Trachea midline, Supple Chest/axilla: Normal chest wall appearance and motion. Cardiovascular: Regular rate and rhythm. No edema appreciated Respiratory: Normal respirations, no respiratory distress appreciated Abdomen/GI: Non distended, soft Back: Normal ROM Skin: General appearance color normal MS/ Extremity: Moves all extremities, no obvious deformities appreciated, no edema noted to the lower extremities Neuro: Awake and alert Psych: Behavior is normal, Mood is normal, Patient is cooperative and pleasant Vital Signs: 18:43 BP 141 / 98; Pulse 92; Resp 17; Temp 99.1; Pulse Ox 100% ; Weight 102.06 kg; Height 5 ll1 ft. 5 in. (165.10 cm); Pain 0/10; 21:00 BP 136 / 95; Pulse 89; Resp 18; Pulse Ox 100% on R/A; vc1 18:43 Body Mass Index 37.44 (102.06 kg, 165.10 cm) ll1 MDM: 20:24 Patient medically screened. [facility] 21:01 Data reviewed: vital signs, nurses notes. Counseling: I had a detailed discussion with shirley the patient and/or guardian regarding: the historical points, exam findings, and any diagnostic results supporting the discharge/admit diagnosis, radiology results, the need for outpatient follow up, to return to the emergency department if symptoms worsen or persist or if there are any questions or concerns that arise at home. 21:01 ED course: Patient is alert nontoxic in appearance NAD. CT was negative. Patient jmm advised to follow neurology for further evaluation otherwise given strict return precautions.. 02/05 20:25 Order name: CT Head Brain wo Cont; Complete Time: 21:01 [facility] Administered Medications: No medications were administered Disposition Summary: 02/05/22 21:02 Discharge Ordered Location: Home [facility] Condition: Stable [facility] Diagnosis - Paresthesia of skin [facility] Followup: [facility] - With: Private Physician - When: 2 - 3 days - Reason: Recheck today's complaints, Continuance of care, Re-evaluation by your physician Discharge Instructions: - Discharge Summary Sheet [facility] - Paresthesia [facility] Forms: - Medication Reconciliation Form [facility] - Thank You Letter [facility] - Antibiotic Education [facility] - Prescription Opioid Use [facility] Signatures: Dispatcher [employer] EDLuis Ramírez PA PA jmm Lewis, Lynsay, RN RN ll1
--- NOTE | 2022-02-05 21:02 | ER ---
Nurse's Notes [facility] Name: Stephenie Bal Age: 31 yrs Sex: Female : 1990 Arrival Date: 02/05/2022 Time: 18:36 Bed Waiting Private MD: Diagnosis: Paresthesia of skin Presentation: 02/05 18:43 Chief complaint: Patient states: Fcaial tingling off/on for 4 days. Tingling to body at ll1 times. Rash to arm areas off/on for 4 days. States she ate seafood right before this started. Coronavirus screen: Vaccine status: Patient reports receiving the 2nd dose of the covid vaccine. Client denies travel out of the [place] in the last 14 days. At this time, the client does not indicate any symptoms associated with coronavirus-19. Ebola Screen: Patient denies travel to an Ebola-affected area in the 21 days before illness onset. Initial Sepsis Screen: Does the patient meet any 2 criteria? No. Patient's initial sepsis screen is negative. Does the patient have a suspected source of infection? No. Patient's initial sepsis screen is negative. Risk Assessment: Do you want to hurt yourself or someone else? Patient reports no desire to harm self or others. Onset of symptoms was February 02, 2022. 18:43 Method Of Arrival: Ambulatory ll1 18:43 Acuity: RADHA 3 ll1 Triage Assessment: 18:47 General: Appears in no apparent distress. Behavior is calm, cooperative, appropriate ll1 for age. Pain: Denies pain. Neuro: Reports numbness paresthesias. Historical: - Allergies: 18:46 No Known Drug Allergies; ll1 - PMHx: 18:46 Hypertension; ll1 - PSHx: 18:46 L wrist SX; ll1 - Immunization history:: Client reports receiving the 2nd dose of the Covid vaccine, Flu vaccine status is unknown. - Social history:: Smoking status: Patient denies any tobacco usage or history of. Screenin:30 Abuse screen: Denies threats or abuse. Nutritional screening: No deficits noted. vc1 Tuberculosis screening: No symptoms or risk factors identified. Fall Risk None identified. Assessment: 19:30 Reassessment: See Triage assessment. vc1 21:00 Reassessment: Patient and/or family updated on plan of care and expected duration. Pain vc1 level reassessed. Patient is alert, oriented x 3, equal unlabored respirations, skin warm/dry/pink. Patient states symptoms have improved. Vital Signs: 18:43 BP 141 / 98; Pulse 92; Resp 17; Temp 99.1; Pulse Ox 100% ; Weight 102.06 kg; Height 5 ll1 ft. 5 in. (165.10 cm); Pain 0/10; 21:00 BP 136 / 95; Pulse 89; Resp 18; Pulse Ox 100% on R/A; vc1 18:43 Body Mass Index 37.44 (102.06 kg, 165.10 cm) 1 ED Course: 18:36 Patient arrived in ED. ja2 18:46 Triage completed. ll1 18:47 Arm band placed on. 1 19:02 Luis Lambert PA is PHCP. [facility] 19:02 Fahad Olsen MD is Attending Physician. [facility] 20:46 CT Head Brain wo Cont In Process Unspecified. EDMS 22:00 No provider procedures requiring assistance completed. Patient did not have IV access vc1 during this emergency room visit. Administered Medications: No medications were administered Outcome: 21:02 Discharge ordered by . jmm 22:10 Discharged to home ambulatory. vc1 22:10 Condition: good 22:10 Discharge instructions given to patient, Instructed on discharge instructions, follow up and referral plans. Demonstrated understanding of instructions, follow-up care. 22:12 Patient left the ED. vc1 Signatures: Dispatcher [employer] EDWA Luis Lambert PA PA jmm Lewis, Lynsay, RN RN 1 Sharona Saenz [facility] Clarice Quinteros RN RN vc1
[2022-02-06 00:50] VITALS: BP 141/98; TEMP 99.1; O2SAT 100
== END 2022-02-05 22:12 | disposition home or self-care (01) ==
LOC: ER 18:31
DX: R20.2 Paresthesia of skin (principal); R20.0 Anesthesia of skin; I10 Essential (primary) hypertension
CPT/HCPCS: 70450; 99283